=== PATIENT | female | born 1965 | race Caucasian/White ===

== ENCOUNTER 2018-01-22 16:50 | Outpatient (CLI) | payer OTHER ==
[2016-05-08 18:50] VITALS: BP 123/107
== END 2018-01-22 16:52 ==
LOC: LABRHC 16:50
PROVIDERS: ATTEND Physician Assistant
DX: Z12.4 Encounter for screening for malignant neoplasm of cervix (principal)
CPT/HCPCS: 88148; G0143

== ENCOUNTER 2018-04-07 08:52 | Day surgery (SDC) | payer OTHER ==
[2016-05-08 18:50] VITALS: BP 123/107
[~2018-04-07 08:52] MED LIST: LACTATED RINGERS 1,000 ML IV.SOLN IV ONE; LIDOCAINE HCL/PF 2% 100 MG/5 ML VIAL IJ ONE; PROPOFOL 500 MG/50 ML VIAL IV ONE
--- NOTE | 2018-04-08 11:05 | GI Report ---
REFERRING PHYSICIAN: KETAN Jade SHIPPING HAND: Florencio Valentine MD PROCEDURE MEDICATION: Propofol as per anesthesia. INDICATIONS: This 52-year-old woman is referred for a screening colonoscopy. She denies a family history of colorectal cancer. She has a bowel movement about every 3 to 4 days. She denies blood with the stool. Occasionally, there is some discomfort in the right lower quadrant after a bowel movement. PROCEDURE PERFORMED: Colonoscopy. PROCEDURE: An Olympus video colonoscope was advanced to the rectum and slowly advanced all the way to the cecum. The appendiceal orifice and terminal ileum were normal. It was a slightly atonic redundant colon. On slow withdrawal, the cecum and ascending colon with no obvious intraluminal lesions noted. Transverse colon, again, no obvious intraluminal lesions noted. The descending colon and sigmoid with a little redundancy but the mucosa looks normal. There is one little erythematous area in the sigmoid and a few small diverticula. No obvious diverticulitis. The rectum itself looks normal. Patient tolerated the procedure well. FINDINGS: 1. A few small diverticula in the sigmoid colon. 2. A slightly atonic redundant colon, otherwise, normal colonoscopy to the cecum. RECOMMENDATIONS: 1. Increase fiber in her diet, such as Benefiber or Metamucil. 2. Consider re-looking at her colon in 10 years, sooner if clinically indicated. cc: KETAN Jade [facility]ALTH[facility]
== END 2018-04-07 08:53 ==
LOC: OPSURG 08:52
PROVIDERS: ATTEND Internal Medicine Gastroenterology
DX: Z12.11 Encounter for screening for malignant neoplasm of colon (principal); K57.30 Diverticulosis of large intestine without perforation or abscess without bleeding
CPT/HCPCS: J2001; J2704; J7120; 45378; S1016

== ENCOUNTER 2018-05-22 07:09 | Outpatient (CLI) | payer OTHER ==
[2016-05-08 18:50] VITALS: BP 123/107
[2018-05-22 08:45] LABS: eGFR (Non-African) > 60
== END 2018-05-22 07:14 | disposition home or self-care (01) ==
LOC: LAB 07:09
PROVIDERS: ATTEND Physician Assistant
DX: Z00.00 Encounter for general adult medical examination without abnormal findings (principal); Z13.6 Encounter for screening for cardiovascular disorders
CPT/HCPCS: 36415; 80053; 80061

== ENCOUNTER 2018-09-10 16:32 | Outpatient (CLI) | payer OTHER ==
[2016-05-08 18:50] VITALS: BP 123/107
[2018-09-10 17:13] LABS: eGFR (Non-African) > 60
== END 2018-09-10 16:55 ==
LOC: LAB 16:32
PROVIDERS: ATTEND Family Medicine
DX: E78.2 Mixed hyperlipidemia (principal)
CPT/HCPCS: 36415; 80053

== ENCOUNTER 2019-04-17 09:45 | Outpatient (CLI) | payer OTHER ==
[2016-05-08 18:50] VITALS: BP 123/107
--- NOTE | 2019-04-17 16:32 | Diagnostic Imaging Report ---
PATIENT MR#: [id number] PATIENT PATIENT NAME: FLAQUITA KIM DATE OF : 1965 REFERRING PHYSICIAN: Marianna Harrison EXAM DATE: 04/17/2019 ACCESSION NUMBER: [id number] EXAM DESCRIPTION: SHOULDER 2 VIEWS OR MORE CLINICAL HISTORY: PAIN IN LEFT SHOULDER FOR ABOUT A YEAR, WORSENING COMPARISON: No study for comparison is available at the time of interpretation. TECHNIQUE: DX left shoulder, 3 views Osseous structures: The osseous structures are normal with no evidence of fracture or dislocation. Th ere is no osseous lesion or periosteal reaction. Joint spaces: The bones are well aligned. No articular surface abnormality is noted. Soft tissues: There is normal appearance of the soft tissues with no radiopaque foreign body seen. Th ere is a 7 mm density in the left lung which likely represents calcified granuloma. IMPRESSION: 1. No acute abnormality of the left shoulder. 2. Probable left lung granuloma. Consider further evaluation with chest radiograph if the patient has risk factors for pulmonary nodules. Read by: Dr. Erlin Reilly Transcribed by: Erlin Reilly Transcribed Date: 04/17/2019 4:32:04 PM Electronically signed by: Dr. Erlin Reilly Date signed: 04/17/2019 4:32:04 PM
== END 2019-04-17 09:50 ==
LOC: LAB 09:45
PROVIDERS: ATTEND Nurse Practitioner Family
DX: M25.512 Pain in left shoulder (principal); G89.29 Other chronic pain
CPT/HCPCS: 73030

== ENCOUNTER 2019-05-13 16:06 | Outpatient (CLI) | payer OTHER ==
[2016-05-08 18:50] VITALS: BP 123/107
[2019-05-13 16:50] LABS: eGFR (Non-African) > 60
[2019-05-13 16:51] LABS: HDL 55 mg/dL (>40)
== END 2019-05-13 16:11 ==
LOC: LAB 16:06
PROVIDERS: ATTEND Family Medicine
DX: Z13.220 Encounter for screening for lipoid disorders (principal)
CPT/HCPCS: 36415; 80053; 80061